=== PATIENT | male | born 1975 | race Caucasian/White ===

== ENCOUNTER 2018-10-03 07:47 | Day surgery (SDC) | payer OTHER ==
[2018-09-14 11:12] VITALS: BMI 33.4
[2018-10-03] MEDS ORDERED: MIDAZOLAM HCL 2 MG/2 ML SINGLE DOSE VIAL ONE (09:08)
[2018-10-03] MEDS ORDERED: LIDOCAINE HCL 2% 100 MG/5 ML DISP.SYRIN ONE (09:08)
[2018-10-03] MEDS ORDERED: PROPOFOL 20 ML ONE (09:08)
[2018-10-03] MEDS ORDERED: LIDOCAINE HCL 2% (50ML VIAL) INF ONE (09:14)
[2018-10-03] MEDS ORDERED: ONDANSETRON 4 MG/2 ML VIAL IVPUSH PRN (09:42)
[2018-10-03] MEDS ORDERED: PROMETHAZINE HCL 25 MG/1 ML VIAL IVPB PRN (09:42)
[2018-10-03] MEDS ORDERED: oxyCODONE HCL 5 MG TABLET PO PRN ×2 (09:42)
[2018-10-03 09:52] VITALS: TEMP 98.4
[2018-10-03 10:14] VITALS: BP 127/68; PULSE 81
--- NOTE | 2018-10-04 11:51 | OP ---
DATE OF OPERATION: 10/03/2018 SURGEON: Aayush De Leon MD PREOPERATIVE DIAGNOSIS: Right carpal tunnel syndrome. POSTOPERATIVE DIAGNOSIS: Right carpal tunnel syndrome. OPERATIVE PROCEDURE: Right carpal tunnel release. ANESTHESIA: Local with sedations. COMPLICATIONS: None. ESTIMATED BLOOD LOSS: Minimal. INDICATIONS FOR PROCEDURE: The patient is a 42-year-old male with the above findings, indicated for operative treatment. The risks, benefits, and alternatives were discussed with the patient at length, and proper informed consent was obtained. PROCEDURE: After proper identification of the patient and the correct operative site, the patient was brought to the operating room and placed supine on the table with prominences well padded. Sedation was given by the anesthesiologist. Local anesthesia was given with 2% lidocaine. Right upper extremity was prepped and draped in the usual sterile fashion. A well-padded tourniquet was placed with a sterile prep. Esmarch bandage was used to exsanguinate right upper extremity. Tourniquet was inflated to 250 mmHg. A longitudinal incision made over the proximal aspect of the palm. Incision was taken sharply through the skin with blunt and sharp dissection through subcutaneous tissues. Palmar fascia was divided longitudinally. Transverse carpal ligament along with the distal 4 cm of antebrachial fascia were divided longitudinally under direct visualization with loupe magnification. This provided complete release of the median nerve at the wrist. Wound was irrigated with saline and repaired with a 5-0 nylon suture. Sterile dressings were applied. The patient was brought to the recovery room in stable condition. He tolerated the procedure well. AAYUSH DE LEON M.D. [facility] MANUEL/[id number]
== END 2018-10-03 10:17 | disposition home or self-care (01) ==
LOC: FASU 07:47
PROVIDERS: ATTEND Orthopaedic Surgery Hand Surgery
PROC: 01N50ZZ Release Median Nerve, Open Approach (ICD-10-PCS; principal; 2018-10-03 09:23)
DX: G56.01 Carpal tunnel syndrome, right upper limb (principal)

== ENCOUNTER 2022-12-31 14:55 | Emergency (ER) | payer OTHER ==
[2022-12-31] MEDS ORDERED: SODIUM CHLORIDE 0.9% 500 ML INFUS.BAG IV ONE (15:06)
[2022-12-31] MEDS ORDERED: LORazepam 2 MG/ML SDV VIAL IVPUSH ONE (15:08)
[2022-12-31 15:09] VITALS: TEMP 99.4; BMI 27.0
[2022-12-31 15:36] LABS: VENOUS BASE EXCESS -0.8 mmol/L (-2-2); VENOUS O2 SATURATION 92.1 % (70-80); VENOUS PCO2 39.1 mmHg (38-52); VENOUS PH 7.401 (7.310-7.410)
[2022-12-31 15:37] LABS: BASO % 0.8 % (0-2.0); EOS % 1.4 % (0-4.5); HEMATOCRIT 37.5 % (35.4-49); HEMOGLOBIN 12.8 GM/dL (11.7-16.9); LYMPH % 15.5 % (8-40); MCH 27.8 pg (25.7-33.7); MCHC 34.3 g/dl (32.0-35.9); MEAN CELL VOLUME 81.1 fl (80-96); MEAN PLT VOLUME 9.6 fl (7.5-11.1); MONO % 8.2 % (3.8-10.2); NEUT % 74.1 % (42.8-82.8); PLATELET COUNT 171 10^3/uL (134-434); RBC 4.62 M/mm3 (4.00-5.60); WHITE BLOOD COUNT 7.6 K/mm3 (4.0-10.0)
[2022-12-31 15:53] LABS: INR 1.07 (0.83-1.09); PROTHROMBIN TIME (PATIENT) 12.4 SEC (9.7-13.0)
[2022-12-31 15:57] LABS: POTASSIUM 3.7 mmol/L (3.5-5.1)
[2022-12-31 15:59] LABS: CALCIUM 8.7 mg/dL (8.5-10.1)
[2022-12-31 16:00] LABS: ALBUMIN 3.5 g/dl (3.4-5.0); MAGNESIUM 2.1 mg/dL (1.8-2.4)
[2022-12-31 16:03] LABS: CREATININE 0.7 mg/dL (0.55-1.3)
[2022-12-31 16:04] VITALS: BP 146/98; PULSE 124; RESP 18
[2022-12-31 16:04] LABS: TOT PROT 6.7 g/dl (6.4-8.2)
[2022-12-31 16:05] LABS: BILIRUBIN,TOTAL 0.3 mg/dL (0.2-1)
[2022-12-31 16:25] LABS: URINE APPEARANCE CLEAR; URINE BILIRUBIN NEGATIVE (NEGATIVE); URINE COLOR YELLOW; URINE GLUCOSE (UA) NEGATIVE (NEGATIVE); URINE KETONE NEGATIVE (NEGATIVE); URINE LEUK ESTERASE NEGATIVE (NEGATIVE); URINE NITRITE NEGATIVE (NEGATIVE); URINE PROTEIN NEGATIVE (NEGATIVE); URINE UROBILINOGEN 0.2 mg/dL (0.2-1.0)
[2022-12-31 16:48] LABS: COCAINE, UR NEGATIVE (NEGATIVE); OPIATES, URI NEGATIVE (NEGATIVE); URINE BARBITURATES NEGATIVE (NEGATIVE)
[2022-12-31 16:49] LABS: METHADONE, UR NEGATIVE (NEGATIVE); URINE AMPHETAMINES NEGATIVE (NEGATIVE); URINE BENZODIAZEPINES NEGATIVE (NEGATIVE)
[2022-12-31 16:52] LABS: PHENCYCLIDINE,URINE POSITIVE (NEGATIVE)
== END 2022-12-31 18:16 | disposition left against medical advice (07) ==
LOC: JER 14:55
PROC: 3E033GC Introduction of Other Therapeutic Substance into Peripheral Vein, Percutaneous Approach (ICD-10-PCS; principal; 2022-12-31)
DX: I61.9 Nontraumatic intracerebral hemorrhage, unspecified (principal); R41.82 Altered mental status, unspecified
CPT/HCPCS: 36415; 70450-TC; 71045-TC-FY; 80053; 80307; 81003; 82550; 82553; 82803; 82962; 83605; 83735; 84439; 84443; 84484; 85025; 85610; 85730; 87086; 93005; 93010; 99285-25

== ENCOUNTER 2023-06-10 14:23 | Emergency (ER) | payer OTHER ==
[2023-06-10 14:30] VITALS: BP 120/85; PULSE 104; RESP 19; TEMP 98; BMI 28.8
== END 2023-06-10 16:19 | disposition home or self-care (01) ==
LOC: JERFT 14:23
DX: S43.101A Unspecified dislocation of right acromioclavicular joint, initial encounter (principal); M25.511 Pain in right shoulder; W18.39XA Other fall on same level, initial encounter
CPT/HCPCS: 73030-TC-RT-FY; 99283-25